=== PATIENT | female | born 1970 | race Caucasian/White ===

== ENCOUNTER 2022-08-15 02:43 | Day surgery (SDC) | payer OTHER, SELFPAY ==
[2022-08-03 13:49] VITALS: BMI 51.5
--- NOTE | 2022-08-14 09:53 | WPDANESEPPF ---
Anes - Initial Pre Proc Eval Procedure: Operation Date: 08/15/22 10:45 Proposed Procedures p Esophagogastroduodenoscopy & Colonoscopy - Garland Copeland MD Date/Time: 08/14/22 09:53 Surgeon: Garland Copeland MD Pre Op Diagnosis: rectal bleed, anemia, chronic disease Patient Data Age: 52 Gender: F Height: 1.63 m Weight: 136.3 kg Allergies Allergy/AdvReac Type Severity Reaction Status Date / Time Penicillins Allergy Hives Verified 08/15/22 09:23 Sulfa (Sulfonamide Allergy Hives Verified 08/15/22 09:23 Antibiotics) Home Medications Medication Instructions Recorded Confirmed Type alprazolam 0.25 mg tablet 0.125 mg PO BID 08/03/22 08/03/22 History aspirin 325 mg tablet 325 mg PO HS 08/03/22 08/03/22 History docusate sodium 100 mg capsule 100 mg PO HS 08/03/22 08/03/22 History (Colace) escitalopram oxalate 20 mg tablet 20 mg PO HS 08/03/22 08/03/22 History (Lexapro) imipramine HCl 50 mg tablet 100 mg PO HS 08/03/22 08/03/22 History levothyroxine 150 mcg tablet 150 mcg PO DAILY 08/03/22 08/03/22 History (Synthroid) lisinopril 10 1 tablet PO BID 08/03/22 08/03/22 History mg-hydrochlorothiazide 12.5 mg tablet mecobalamin (vitamin B12) 10,000 1,000 mcg IM [id number] 08/03/22 08/03/22 History mcg solution for injection meloxicam 15 mg tablet 15 mg PO DAILY 08/03/22 08/03/22 History metoprolol tartrate 50 mg tablet 50 mg PO BID 08/03/22 08/03/22 History ropinirole 2 mg tablet,extended 2 mg PO DAILY 08/03/22 08/03/22 History release 24 hr Patient hx anesthesia problems: none Family hx anesthesia problems: none Results Review: All pre-operative results and documents have been reviewed as part of the pre-operative evaluation. [facility] Past Medical History Medical History (Updated 08/14/22 @ 10:07 by Rk Avila MD) Anxiety Asthma HTN (hypertension) Hypothyroidism Lupus (systemic lupus erythematosus) Morbid obesity with BMI of 50.0-59.9, adult Rheumatoid arthritis Social History Social History Smoking status: Never smoker Substance use: never Living arrangements: with family Spiritual care concerns: No Anes - Eval Final PreProcedure Day of Procedure 08/14/22 09:53 Patient weight: morbidly obese Heart: regular rate and rhythm Lungs: clear to auscultation and normal air movement Airway: Mallampati scale class II Neurological: alert and oriented Last oral intake: >/= 8 hours ASA classification: III Emergent: no Anesthetic plan: proceed Anesthesia type and monitoring: general GIVS Results Review: All pre-operative results and documents have been reviewed as part of the pre-operative evaluation. Informed Consent: The patient's anesthetic plan and its attendant risks and benefits were discussed with the patient/family/POA. Questions were solicited and answers provided to the satisfaction of the patient/family/POA.
[2022-08-15 09:32] VITALS: BP 126/83; PULSE 94; RESP 20; TEMP 36.3; O2SAT 100; BMI 49.4
[2022-08-15] MEDS: LACTATED RINGERS 1,000 ML 150 ML IV CONT (09:41)
--- NOTE | 2022-08-15 10:05 | PM.HPGS ---
History of Present Illness History of Present Illness Consent: Risks, benefits, and alternatives have been discussed and questions answered. Patient agrees to proceed with procedure. Chief complaint: rectal bleed, anemia, chronic disease Narrative: Shama Blul is a 52 year old female with chronic anemia, h/o RA on daily meloxicam, denies overt gib. Last colonoscopy 12 years ago, never had egd. Review of Systems Constitutional: Constitutional: Denies headache(s) and Denies weakness Eyes: Eyes: Denies blurry vision ENT: Reports Normal hearing present, Denies headache(s) and Denies neck pain Cardiovascular: Cardiovascular: Denies chest pain and Denies dyspnea Respiratory: Respiratory: Denies dyspnea Gastrointestinal: Gastrointestinal: Reports no additional gastrointestinal complaints Genitourinary: Genitourinary: Denies dysuria Musculoskeletal: Musculoskeletal: Denies neck pain Integumentary/Breasts: Skin/Breast: Denies dry skin Neurologic: Reports Normal hearing present, Denies headache(s) and Denies weakness Psychiatric: Psychiatric: Denies anxiety Endocrine: Endocrine: Denies change in body appearance Hematologic/Lymphatic: Hematologic/Lymphatic: Denies easy bleeding Allergic/Immunologic: Allergic/Immunologic: Denies urticaria PMFSH Past Medical History Medical History (Updated 08/15/22 @ 10:06 by Garland Copeland MD) Anemia Anxiety Asthma HTN (hypertension) Hypothyroidism Lupus (systemic lupus erythematosus) Morbid obesity with BMI of 50.0-59.9, adult Rheumatoid arthritis Social History Social History Smoking status: Never smoker Substance use: never Living arrangements: with family Spiritual care concerns: No Meds Home Medications and Allergies Home Medications Medication Instructions Recorded Confirmed Type alprazolam 0.25 mg tablet 0.125 mg PO BID 08/03/22 08/03/22 History aspirin 325 mg tablet 325 mg PO HS 08/03/22 08/03/22 History docusate sodium 100 mg capsule 100 mg PO HS 08/03/22 08/03/22 History (Colace) escitalopram oxalate 20 mg tablet 20 mg PO HS 08/03/22 08/03/22 History (Lexapro) imipramine HCl 50 mg tablet 100 mg PO HS 08/03/22 08/03/22 History levothyroxine 150 mcg tablet 150 mcg PO DAILY 08/03/22 08/03/22 History (Synthroid) lisinopril 10 1 tablet PO BID 08/03/22 08/03/22 History mg-hydrochlorothiazide 12.5 mg tablet mecobalamin (vitamin B12) 10,000 1,000 mcg IM [id number] 08/03/22 08/03/22 History mcg solution for injection meloxicam 15 mg tablet 15 mg PO DAILY 08/03/22 08/03/22 History metoprolol tartrate 50 mg tablet 50 mg PO BID 08/03/22 08/03/22 History ropinirole 2 mg tablet,extended 2 mg PO DAILY 08/03/22 08/03/22 History release 24 hr Allergies Allergy/AdvReac Type Severity Reaction Status Date / Time Penicillins Allergy Hives Verified 08/15/22 09:23 Sulfa (Sulfonamide Allergy Hives Verified 08/15/22 09:23 Antibiotics) Vital Signs Vital Signs - 24 hr 08/15/22 09:32 Temperature 97.3 F L Pulse Rate 94 Respiratory Rate 20 Blood Pressure 126/83 Pulse Oximetry 100 Oxygen Delivery Room Air Exam Const: General: comfortable and no acute distress HENMT: Face/Nose/Sinus: Normal nares present Eyes: General: appearance normal, both eyes and all related structures Neck: Neck: no JVD Resp: Auscultation: clear to auscultation bilaterally Cardio: Rate: regular rate Rhythm: regular rhythm GI: Inspection: non-distended GI Palp: Yes Soft to palpation Skin: General skin exam: normal color Neuro: General: gait normal Speech: normal speech Extrem: General: normal to inspection Psych: Mental Status: mental status grossly normal Assessment and Plan Assessment and plan (1) Anemia: Code(s): D64.9 - Anemia, unspecified Status: Acute Assessment and Plan: will check egd and colonoscopy to assess if gi blood loss (2) Lupus (systemic lupus erythematosus):
--- NOTE | 2022-08-15 10:26 | SUR.OPER ---
egd ended at 1020, colonoscopy started at 1026
[2022-08-15 10:41] VITALS: BP 106/55; PULSE 80; RESP 25; O2SAT 100
[2022-08-15 10:51] VITALS: BP 108/61; PULSE 88; RESP 22; O2SAT 100
[2022-08-15 11:01] VITALS: BP 102/62; PULSE 86; RESP 18; O2SAT 100
== END 2022-08-15 11:35 | disposition home or self-care (01) ==
PROVIDERS: Visit Provider Internal Medicine Gastroenterology
PROC: 0DJ08ZZ Inspection of Upper Intestinal Tract, Via Natural or Artificial Opening Endoscopic (ICD-10-PCS; CPT 43235; principal; 2022-08-15 10:45)
DX: Z12.11 Encounter for screening for malignant neoplasm of colon (principal); K64.8 Other hemorrhoids; K44.9 Diaphragmatic hernia without obstruction or gangrene; K29.70 Gastritis, unspecified, without bleeding; D64.9 Anemia, unspecified; Z79.1 Long term (current) use of non-steroidal anti-inflammatories (NSAID); I10 Essential (primary) hypertension; E03.9 Hypothyroidism, unspecified; M32.9 Systemic lupus erythematosus, unspecified; M06.9 Rheumatoid arthritis, unspecified; F41.9 Anxiety disorder, unspecified; Z79.82 Long term (current) use of aspirin; E66.01 Morbid (severe) obesity due to excess calories; Z68.42 Body mass index [BMI] 45.0-49.9, adult
CPT/HCPCS: 45378; 43239; 88305; 88342; J2704; J7120